=== PATIENT | female | born 1990 | race Caucasian/White ===

== ENCOUNTER 2020-08-29 09:33 | Emergency (ER) | payer OTHER | END 2020-08-29 10:22 | disposition home or self-care (01) | LOC: FER 09:33 | DX: S80.11XA Contusion of right lower leg, initial encounter (principal); F17.200 Nicotine dependence, unspecified, uncomplicated; Z02.89 Encounter for other administrative examinations; V49.50XA Passenger injured in collision with unspecified motor vehicles in traffic accident, initial encounter; Y92.410 Unspecified street and highway as the place of occurrence of the external cause | CPT/HCPCS: 99283 ==